=== PATIENT | male | born 1980 | race Caucasian/White ===

== ENCOUNTER 2018-05-16 20:51 | Emergency (ER) | payer OTHER ==
[~2018-05-16] VITALS: Ht 180.3 cm; Wt 87.1 kg
[2018-05-16 21:20] VITALS: BP 156/87
--- NOTE | 2018-05-16 21:25 | NUR ---
PT AMBULATED TO LOBBY WITH VSS. SWABED FOR INFLUENZA.
--- NOTE | 2018-05-16 22:45 | NUR ---
PT AMBULATED TO BED #3
--- NOTE | 2018-05-16 23:00 | NUR ---
PT PRESENTS TO ED WITH FEVER, GENERALIZED BODY ACHES, NAUSEA X2 WKS. AFEBRILE 99.9. HX.METH ABUSE; SKIN IS INTACT, PINK/WARM/DRY; AAOX4, PERRL, WITH EVEN AND STEADY GAIT; LUNGS CLEAR BL, BREATHING UNLABORED; HR EVEN AND REGULAR, BL PERIPHERAL PULSES PRESENT; BS ACTIVE X4, NO TENDERNESS TO PALPATION, NO HEPATOSPLENOMEGALLY PALPATED, RESONANT TO PERCUSSION; PT DENIES ANY FEVER, CP, SOB, OR COUGH AT THIS TIME; PT STATES 0/10 PAIN AT THIS TIME; VSS; PATIENT POSITIONED FOR COMFORT; HOB ELEVATED; BEDRAILS UP X2; BED DOWN.
--- NOTE | 2018-05-16 23:20 | NUR ---
Patient discharged with v/s stable. Written and verbal after care instructions given and explained. Patient alert, oriented and verbalized understanding of instructions. Ambulatory with steady gait. All questions addressed prior to discharge. ID band removed. Patient advised to follow up with PMD. Rx of BACTRIM DS, MOTRIN 800 MG, ZOFRAN 4 MG given. Patient educated on indication of medication including possible reaction and side effects. Opportunity to ask questions provided and answered.
[2018-05-16 23:21] VITALS: BP 120/67
== END 2018-05-16 23:20 | disposition home or self-care (01) ==
LOC: MED 20:51
DX: R10.84 Generalized abdominal pain (principal); R03.0 Elevated blood-pressure reading, without diagnosis of hypertension; R50.9 Fever, unspecified; R11.2 Nausea with vomiting, unspecified; F17.210 Nicotine dependence, cigarettes, uncomplicated
CPT/HCPCS: 87804; 99283

== ENCOUNTER 2018-07-05 15:06 | Emergency (ER) | payer OTHER ==
[~2018-07-05] VITALS: Ht 180.3 cm; Wt 89.8 kg
[2018-07-05 15:26] VITALS: BP 154/82
--- NOTE | 2018-07-05 15:36 | NUR ---
PT AMB TO BED2
--- NOTE | 2018-07-05 15:36 | NUR ---
BIB SELF. AAO X4. C/O RIGHT LATERAL LEG WITH REDNESS,SWELLING & PAIN X 2 DAYS. PT STATED " POSSIBLE BUG BITE." PT'S R LATERAL LEG, WARM AND TENDER TO TOUCH. PT STATES THROBBING PAIN OF 10/10. AFEBRILE. PT DENIES N/V. DENIES SOB. HOB UP. BED SIDE RAILS UP X1. ON LOW BED POSITION, LOCKED. ER MADE AWARE OF PT STATUS.
--- NOTE | 2018-07-05 16:14 | NUR ---
DR RAY AT BEDSIDE FOR PT EVALUATION
[2018-07-05] MEDS ORDERED: KETOROLAC 60 MG/2 ML VIAL IM ONE (16:20)
[2018-07-05 16:56] VITALS: BP 139/84
--- NOTE | 2018-07-05 16:56 | NUR ---
Patient discharged with v/s stable. Written and verbal after care instructions given and explained. Patient alert, oriented and verbalized understanding of instructions. Ambulatory with steady gait. All questions addressed prior to discharge. ID band removed. Patient advised to follow up with PMD. Rx of Bactrim, Keflex, Motrin given. Patient educated on indication of medication including possible reaction and side effects. Opportunity to ask questions provided and answered.
== END 2018-07-05 16:56 | disposition home or self-care (01) ==
LOC: MED 15:06
DX: L02.415 Cutaneous abscess of right lower limb (principal); L03.115 Cellulitis of right lower limb; F17.200 Nicotine dependence, unspecified, uncomplicated
CPT/HCPCS: 96372; 99283; J1885

== ENCOUNTER 2019-04-27 06:05 | Emergency (ER) | payer OTHER ==
[~2019-04-27] VITALS: Ht 182.9 cm; Wt 90.7 kg
[2019-04-27 06:10] VITALS: BP 146/91
--- NOTE | 2019-04-27 06:10 | NUR ---
PT AMBULATED WITH ASSIST TO BED #11.
[2019-04-27 06:15] VITALS: BP 146/91
--- NOTE | 2019-04-27 06:15 | NUR ---
38 Y/O M PRESENTS TO ED WITH C/O BILATERAL EYE PAIN X3 DAYS. PT REPORTS HAVING CONTACT LENSES IN RT EYE FOR 3 DAYS AND STATES "I DONT KNOW WHERE THE PAIN CAME FROM BUT I CANT SEE." PT UNABLE TO OPEN BOTH EYES COMPLETELY, VISUAL ACUITY NOT COMPLETED. BILATERAL SCLERA EJECTED. PT SEATED UPRIGHT IN CHAIR AT BEDSIDE.
[2019-04-27] MEDS ORDERED: FLUORESCEIN OPTH STRIP 1 MG ONE ×2 (06:38→06:39)
[2019-04-27] MEDS ORDERED: TETRACAINE HCL/PF 0.5% OPTH 4 ML BTL ONE (06:38)
[2019-04-27] MEDS ORDERED: TETRACAINE HCL/PF 0.5% OPTH 4 ML BTL OP ONE (06:40)
[2019-04-27] MEDS ORDERED: IBUPROFEN 800 MG TAB PO ONE (06:45)
--- NOTE | 2019-04-27 06:50 | NUR ---
PT EYES FLUSHED WITH 20ML PER EACH EYE. PT ABLE TO OPEN EYES MINIMALLY. PT REPORTS SOME RELIEF.
--- NOTE | 2019-04-27 07:08 | NUR ---
Patient discharged with v/s stable. Written and verbal after care instructions given and explained. Patient alert, oriented and verbalized understanding of instructions. Ambulatory with steady gait. All questions addressed prior to discharge. ID band removed. Patient advised to follow up with PMD. Rx of MOTRIN AND CILOXAN given. Patient educated on indication of medication including possible reaction and side effects. Opportunity to ask questions provided and answered.
[2019-04-28] MEDS ORDERED: FLUORESCEIN OPTH STRIP 1 MG OP ONE (11:30)
== END 2019-04-27 07:08 | disposition home or self-care (01) ==
LOC: MED 06:05
DX: S05.02XA Injury of conjunctiva and corneal abrasion without foreign body, left eye, initial encounter (principal); S05.01XA Injury of conjunctiva and corneal abrasion without foreign body, right eye, initial encounter; R03.0 Elevated blood-pressure reading, without diagnosis of hypertension; X58.XXXA Exposure to other specified factors, initial encounter; Y93.89 Activity, other specified; Y92.89 Other specified places as the place of occurrence of the external cause; Y99.8 Other external cause status
CPT/HCPCS: 99283